=== PATIENT | female | born 1960 | race Caucasian/White ===

== ENCOUNTER 2016-05-08 12:50 | Emergency (ER) | payer OTHER ==
--- NOTE | 2016-05-08 13:46 | EDM.PDOC ---
ED HPI GI/ABDOMINAL - General Chief Complaint: Abdominal Pain Stated Complaint: ABDOMINAL PAIN Time Seen by Provider: 05/08/16 13:45 - History of Present Illness INITIAL COMMENTS - FREE TEXT/NARRATIVE: 55-year-old female presents emergency room with abdominal pain. She's been having some constipation over the last week or so. This is progressively getting worse. The last couple of days and then much worse she has a BM every day. It consists of small hard pellets. Gen. one episode of loose stools a couple days ago. Her appetite is decreased. She has discomfort over the lower abdomen that is fairly generalized. - Related Data Allergies/ADRs: Allergies Allergy/AdvReac Type Severity Reaction Status Date / Time No Known Allergies Allergy Verified 05/08/16 12:58 Home Meds: Home Meds Aspirin 325 mg PO ASDIRECTED PRN 05/08/16 [History] Eletriptan HBr [Relpax] 20 mg PO ASDIRECTED PRN 05/08/16 [History] atorvaSTATin [Lipitor] 10 mg PO DAILY 05/08/16 [History] Past Medical History HEENT History: Reports: Hard of hearing, Impaired vision Cardiovascular History: Reports: High cholesterol Gastrointestinal History: Reports: Hemorrhoids Neurological History: Reports: Headaches, chronic, Migraines - Past Surgical History Other HEENT Surgeries/Procedures: loss of hearing left ear for years Social & Family History - Family History Cardiac: Reports: High cholesterol, Hypertension Oncologic: Reports: Cervix, Prostate - Tobacco Use Smoking Status *Q: Never Smoker Second Hand Smoke Exposure: No - Caffeine Use Caffeine Use: Reports: Coffee - Recreational Drug Use Recreational Drug Use: No ED ROS GENERAL - Review of Systems Review Of Systems: See Below Constitutional: Reports: weight gain. Denies: fever, chills Respiratory: Reports: No Symptoms Cardiovascular: Reports: No symptoms GI/Abdominal: Reports: Abdominal pain, Constipation, Nausea, Vomiting : Reports: no symptoms Neurological: Reports: No Symptoms ED EXAM, GI/ABD - Physical Exam Exam: See Below Exam Limited By: No limitations General Appearance: alert, no apparent distress Head: atraumatic, normocephalic Neck: normal inspection, supple, non-tender, full range of motion. No: lymphadenopathy (L), lymphadenopathy (R) Respiratory/Chest: no respiratory distress, lungs clear, normal breath sounds Cardiovascular: regular rate, rhythm, no edema, no murmur GI/Abdominal: normal bowel sounds, soft, tenderness (She has vague discomfort in the lower abdomen to palpation this is not suprapubic). No: non tender, distention, guarding, rebound, rigidity Rectal (Female) Exam: Hemorrhoids (She has some hemorrhoids noted these do not appear to be a involved at this point rectal exam shows some small fissures that are very tender no stool obtained from digital rectal exam however the stool sample that she would did give us was checked and is Hemoccult positive) Course - Vital Signs Last Recorded V/S: Last Vital Signs Temp 36.2 C 05/08/16 13:02 Pulse 95 05/08/16 13:02 Resp 20 05/08/16 13:02 BP 187/118 H 05/08/16 13:02 Pulse Ox 100 05/08/16 13:02 - Orders/Labs/Meds Orders: Active Orders 24 hr Category Date Time Status Abdomen 2V AP Flat Upright [CR] Stat Exams 05/08/16 13:55 Taken Lactated Ringers [Ringers, Lactated] 1,000 ml Med 05/08/16 14:00 Active IV ASDIRECTED Medication Orders Lactated Ringer's (Ringers, Lactated) 1,000 mls @ 150 mls/hr IV ASDIRECTED LALO Last Admin: 05/08/16 14:06 Dose: 150 mls/hr Labs: Laboratory Tests 05/08/16 05/08/16 05/08/16 Range/Units 13:05 13:05 13:35 WBC 20.21 H (3.98-10.04) K/mm3 RBC 5.15 (3.98-5.22) M/mm3 Hgb 15.5 (11.2-15.7) gm/L Hct 44.9 (34.1-44.9) % MCV 87.2 (79.4-94.8) fl MCH 30.1 (25.6-32.2) pg MCHC 34.5 (32.2-35.5) g/dl RDW Std Deviation 40.9 (36.4-46.3) fL Plt Count 423 H (182-369) K/mm3 MPV 8.8 L (9.4-12.3) fl Neutrophils % (Manual) 57 (40-60) % Band Neutrophils % 0 (0-10) % Lymphocytes % (Manual) 39 (20-40) % Atypical Lymphs % 0 % Monocytes % (Manual) 2 (2-10) % Eosinophils % (Manual) 1 (0.7-5.8) % Basophils % (Manual) 1 (0.1-1.2) Platelet Estimate Adequate RBC Morph Comment Normal Sodium 137 (136-145) mEq/L Potassium 3.7 (3.5-5.1) mEq/L Chloride 99 (98-107) mEq/L Carbon Dioxide 24 (21-32) mEq/L Anion Gap 17.7 H (5-15) BUN 10 (7-18) mg/dL Creatinine 0.9 (0.55-1.02) mg/dL Est Cr Clr Drug Dosing 52.04 mL/min Estimated GFR (MDRD) > 60 (>60) mL/min BUN/Creatinine Ratio 11.1 L (14-18) Glucose 127 H (74-106) mg/dL Calcium 9.8 (8.5-10.1) mg/dL Total Bilirubin 0.9 (0.2-1.0) mg/dL AST 16 (15-37) U/L ALT 36 (14-59) U/L Alkaline Phosphatase 109 (46-116) U/L Total Protein 8.3 H (6.4-8.2) g/dl Albumin 4.4 (3.4-5.0) g/dl Globulin 3.9 gm/dL Albumin/Globulin Ratio 1.1 (1-2) Urine Color Yellow (Yellow) Urine Appearance Clear (Clear) Urine pH 7.0 (5.0-8.0) Ur Specific [place] 1.015 (1.005-1.030) Urine Protein Negative (Negative) Urine Glucose (UA) Negative (Negative) Urine Ketones Trace H (Negative) Urine Occult Blood Negative (Negative) Urine Nitrite Negative (Negative) Urine Bilirubin Negative (Negative) Urine Urobilinogen 0.2 (0.2-1.0) Ur Leukocyte Esterase 1+ H (Negative) Urine RBC 0-5 (0-5) /hpf Urine WBC 10-20 H (0-5) /hpf Ur Squamous Epith Cells 5-10 H (0-5) /hpf Urine Bacteria Few (FEW) /hpf Urine Mucus Few (FEW) /hpf Meds: Medications Generic Name Dose Route Start Last Admin Trade Name Freq PRN Reason Stop Dose Admin Lactated Ringer's 1,000 mls @ 150 mls/hr 05/08/16 14:00 05/08/16 14:06 Ringers, Lactated IV 150 mls/hr ASDIRECTED LALO Administration Discontinued Medications Generic Name Dose Route Start Last Admin Trade Name Clau PRN Reason Stop Dose Admin Ondansetron HCl 4 mg 05/08/16 13:55 05/08/16 14:06 Zofran IVPUSH 05/08/16 13:56 4 mg ONETIME ONE Administration - Re-Assessments/Exams Free Text/Narrative Re-Assessment/Exam: 05/08/16 16:07 For evaluation concerning for a white count is 20,000 however no bandemia, no left shift urinalysis is probably contaminated specimen given she's a heavy symptoms urine culture pending we'll not treat at this point KUB and upright did not show any evidence of obstruction she has a fairly full stool pattern. Patient has long history of constipation we will treat this as though it is constipation. Discussed CAT scan evaluation and the patient agrees to hold off on this she agrees to return in 12 hours if not better sooner if getting worse they will try mag citrate as an outpatient. She was observed in the emergency room she did not have any rectal bleeding here other than very small sample a couple milliliters that was stool with blood mixed in it. Departure - Departure Time of Disposition: 16:11 Disposition: Home, Self-Care 01 Clinical Impression: Abdominal pain of unknown cause, Constipation, Hemorrhoids, external without complications, Rectal fissure Forms: ED Department Discharge Additional Instructions: Return to emergency room with any questions or problems. Return in 12 hours if not better sooner if getting worse. Return sooner if getting worse. Try a bottle of mag citrate. repeat a second bottle in 2-3 hours if needed to get the desired result. Clear liquid diet for the next 12 hours and slowly advance as tolerated. Followup in the clinic on Sunday or . Push lots of fluids fruits and vegetables in your diet when you resume a regular diet. - My Orders Last 24 Hours: My Active Orders 05/08/16 13:55 Abdomen 2V AP Flat Upright [CR] Stat 05/08/16 14:00 Lactated Ringers [Ringers, Lactated] 1,000 ml IV ASDIRECTED - Assessment/Plan Last 24 Hours: My Active Orders 05/08/16 13:55 Abdomen 2V AP Flat Upright [CR] Stat 05/08/16 14:00 Lactated Ringers [Ringers, Lactated] 1,000 ml IV ASDIRECTED
[2016-05-08] MEDS ORDERED: Ondansetron 4 MG/2 ML SDV IVPUSH ONE (13:55)
[2016-05-08] MEDS ORDERED: Lactated Ringers 1,000 ML IV SCH (14:00)
[2016-05-08 16:38] VITALS: BP 150/88
--- NOTE | 2016-05-08 18:04 | CR ---
Abdomen: Supine and upright views of the abdomen were obtained. Comparison: No previous study. No free air is seen. Bowel gas pattern is felt to be within normal limits. Calcifications are identified within the pelvis most likely representing phleboliths. Bony structures are unremarkable. Impression: 1. Incidental findings. Diagnostic code #2
== END 2016-05-08 16:41 | disposition home or self-care (01) ==
LOC: JD.ED 12:50
DX: R10.9 Unspecified abdominal pain (principal); K59.00 Constipation, unspecified; K64.4 Residual hemorrhoidal skin tags; K60.2 Anal fissure, unspecified; E78.00 Pure hypercholesterolemia, unspecified
CPT/HCPCS: 36415; 74020; 80053; 81001; 85025; 87086; 96361; 96374; 99284; J2405; J7120

== ENCOUNTER 2017-01-08 06:05 | Emergency (ER) | payer OTHER ==
--- NOTE | 2017-01-08 06:37 | EDM.PDOC ---
ED HPI GENERAL MEDICAL PROBLEM - General Chief Complaint: Cardiovascular Problem Stated Complaint: HIGH BLOOD PRESSURE Time Seen by Provider: 01/08/17 06:21 Source of Information: Reports: Patient History Limitations: Reports: No Limitations - History of Present Illness INITIAL COMMENTS - FREE TEXT/NARRATIVE: 56-year-old female arrives in the ED with noted elevated blood pressure when she was seen at the clinic yesterday for dental pain as well as noted elevated blood pressure on checking at home this morning. She was also told that her blood pressure was elevated when she went [facility] a month or so ago and they would not accept her as a phlebotomy patient due to elevated BP. Patient is followed by aJlyn Le. She has been told on a few occasions her blood pressure is borderline but she has never required medication. Patient takes medication for migraine headache occasionally. Last use was approximately 8 days ago. She reports the pain in her tooth is minor at this time. She did take a hydrocodone pill prescribed yesterday about 2200 hrs. last night and some Excedrin Migraine 2 tablets at 3:00 this morning. Blood pressure at her home this morning was 155/105. Initial blood pressure in the ED was 173/109 . She drove her car this morning without any problems with balance or feeling off kilter. She has no chest pain although she does report intermittent heaviness which she equates to being anxious. Onset: Sudden (See history of present illness) Onset Date: 01/07/17 (She was told her blood pressure was elevated at the clinic yesterday but she was in dental pain at that time. She was advised follow -up was required.) Duration: Other (Unknown. 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: Home Treatments (Excedrin Migraine 2 tablets at 3:00 this morning.) - Related Data Allergies Allergy/AdvReac Type Severity Reaction Status Date / Time No Known Allergies Allergy Verified 05/08/16 12:58 Home Meds: Home Meds Aspirin 325 mg PO ASDIRECTED PRN 05/08/16 [History] Eletriptan HBr [Relpax] 20 mg PO ASDIRECTED PRN 05/08/16 [History] atorvaSTATin [Lipitor] 10 mg PO DAILY 05/08/16 [History] Amoxicillin 500 mg PO TID 01/08/17 [History] Cholecalciferol (Vitamin D3) [Vitamin D] 1 cap PO DAILY 01/08/17 [History] Multivitamin [Multi-Vitamin Daily] 1 cap PO DAILY 01/08/17 [History] amLODIPine [Norvasc] 5 mg PO DAILY #30 tablet 01/08/17 [Rx] Past Medical History HEENT History: Reports: Hard of Hearing, Impaired Vision Cardiovascular History: Reports: High Cholesterol Gastrointestinal History: Reports: Hemorrhoids Neurological History: Reports: Headaches, Chronic, Migraines - Past Surgical History Other HEENT Surgeries/Procedures: loss of hearing left ear for years Social & Family History - Family History Cardiac: Reports: High Cholesterol, Hypertension Oncologic: Reports: Cervix, Prostate - Tobacco Use Smoking Status *Q: Never Smoker Second Hand Smoke Exposure: No - Caffeine Use Caffeine Use: Reports: Coffee - Recreational Drug Use Recreational Drug Use: No - Living Situation & Occupation Living situation: Reports: Occupation: Employed ED ROS GENERAL - Review of Systems Review Of Systems: See Below Constitutional: Reports: Fatigue (Has been ill with a flu 3 days ago and then give subsequent he developed dental pain right lower first molar tooth night before last. This is kept her from getting adequate rest and sleep.). Denies: Fever, Chills, Malaise, Weakness HEENT: Reports: Dental Pain (Right lower first molar tooth.), Other (Patient is pretty will definitely her left ear due to chronic infection and previous tympanoplasty performed. Patient was age 28.). Denies: Ear Pain Respiratory: Reports: No Symptoms. Denies: Shortness of Breath, Wheezing, Pleuritic Chest Pain Cardiovascular: Reports: Blood Pressure Problem (See history of present illness) Endocrine: Reports: Fatigue GI/Abdominal: Reports: Constipation (Occasional problems) : Reports: No Symptoms Musculoskeletal: Reports: No Symptoms Skin: Reports: No Symptoms Neurological: Reports: No Symptoms, Headache. Denies: Confusion, Dizziness, Numbness (Gets a lot of headaches. Suffers from migraines intermittently.), Paresthesia, Pre-Existing Deficit, Seizure, Syncope, Tingling, Tremors, Trouble Speaking, Difficulty Walking, Weakness, Change in Speech, Gait Disturbance Psychiatric: Reports: Anxiety (Mildly anxious at this time) Hematologic/Lymphatic: Reports: No Symptoms Immunologic: Reports: No Symptoms ED EXAM, GENERAL - Physical Exam Exam: See Below Exam Limited By: No Limitations General Appearance: Alert, WD/WN, Anxious Eye Exam: Bilateral Eye: Normal Inspection Ears: Other (Patient has an abnormal appearing left eardrum from previous tympanoplasty. She reports she's. We'll definitely see her. Lt tympanic membrane is abnormal and suggests fluid in the middle ear space.) Neck: Normal Inspection, Supple, Non-Tender, Full Range of Motion, Limited Range of Motion, Lymphadenopathy (R) (Right submandibular gland adenopathy). No : Lymphadenopathy (L) Respiratory/Chest: No Respiratory Distress ( with mild tenderness to palpation. Appears to be secondary to dental infection.), Lungs Clear, Normal Breath Sounds , No Accessory Muscle Use, Chest Non-Tender Cardiovascular: Normal Peripheral Pulses, Regular Rate, Rhythm, No Edema, No Murmur, Tachycardia (100/m on initial assessment. Current heart rate is now 78.) Peripheral Pulses: 2+: Radial (L), Radial (R), Posterior Tibial (L), Posterior Tibial (R), Dorsalis Pedis (L), Dorsalis Pedis (R), 3+: Carotid (L), Carotid (R) Extremities: Normal Inspection, Normal Range of Motion, Non-Tender, No Pedal Edema Neurological: Alert, Oriented, CN II-XII Intact, Normal Cognition, Normal Gait, Other (Normal finger to nose and no pronator drift. Normal rapid alternating movements.). No: Abnormal Gait Psychiatric: Normal Affect, Normal Mood Skin Exam: Warm, Dry, Intact, Normal Color, No Rash Course - Vital Signs Last Recorded V/S: Last Vital Signs Temp 36.4 C 01/08/17 06:10 Pulse 100 01/08/17 06:10 Resp 18 01/08/17 06:10 BP 173/109 H 01/08/17 06:10 Pulse Ox 96 01/08/17 06:10 - Orders/Labs/Meds Meds: Medications Discontinued Medications Generic Name Dose Route Start Last Admin Trade Name Freq PRN Reason Stop Dose Admin Amlodipine Besylate 10 mg 01/08/17 07:02 Norvasc PO 11/27/17 07:03 ONETIME ONE Ondansetron HCl 4 mg 01/08/17 06:59 Zofran Odt PO 01/08/17 07:00 ONETIME ONE - Radiology Interpretation Free Text/Narrative:: 56-year-old female presents to the ED for evaluation of elevated blood pressure. BP on arrival was 170 3. She appreciates that she is anxious. At home she had 157/106. Examination at this time is otherwise normal. But pressure was 157 105 on my assessment. Heart rate is 80/m. Patient is quite anxious and I think is contributing somewhat to an elevated blood pressure. However subsequent readings over the next half hour reveal blood pressure to be elevated at around 160 systolic and around 104-108 diastolic. - Re-Assessments/Exams Free Text/Narrative Re-Assessment/Exam: 01/08/17 07:09 blood pressures remained elevated at around 160 systolic and 100 diastolic. Highest blood pressure recorded was 173/110. Therefore decision made to treat with amlodipine 10 mg per ora now and then 5 mg daily until she follows up with her primary care provider. From her history where she got turned out at the blood donor clinic 6 weeks ago because of elevated blood pressure .She most likely has essential hypertension that is developed over the last year. I did review notes from all scripts and blood pressure recorded in the clinic was 128/88. Usually her blood pressures in the 120s over 80. She is she has been ill with the flow would last 2 days and then developed dental pain yesterday which is contributing to her anxiety. Last labs reviewed in clinic revealed a normal renal function and she has no contraindications to medication. Amlodipine can exacerbate migraine headaches in headache patients occasionally. Advise follow-up with primary care provider in 10 days' time. She will check her blood pressure daily at home intermittently and write down time and date. Departure - Departure Time of Disposition: 07:18 Disposition: Home, Self-Care 01 Condition: Fair Clinical Impression: Essential hypertension Prescriptions: amLODIPine [Norvasc] 5 mg PO DAILY #30 tablet Referrals: Jalyn Le GUNNER MATE [Primary Care Provider] - Forms: ED Department Discharge, ED Return to Work/School Form Additional Instructions: Evaluation in the emergency room this morning due to elevated blood pressure appreciated at the clinic yesterday and again this morning when you checked her blood pressure. He will monitor to the ED over the last hour and blood pressure has remained elevated on average about 160 on the top and 100 on the bottom number. Therefore I am going to suggest starting high blood pressure medication amlodipine. 5 mg hours to be taken daily starting tomorrow morning. You're given initial dose of amlodipine in the ED today. Education is taken daily and should reduce her blood pressure starting even today. Suggest follow-up with Jalyn Le in about 10 days time for blood pressure review. You can continue to check her blood pressure at home as well and document the numbers you get and time of day. This helps us decide if further medication or different medication is required. Suggest off work today and note given in this regard.
[2017-01-08] MEDS ORDERED: Ondansetron 4 MG Tab.DIS PO ONE (06:59)
[2017-01-08] MEDS ORDERED: amLODIPine 10 MG Tab PO ONE (07:02)
[2017-01-08 07:38] VITALS: BP 154/98
== END 2017-01-08 07:32 | disposition home or self-care (01) ==
LOC: JD.ED 06:05
DX: I10 Essential (primary) hypertension (principal); Z79.82 Long term (current) use of aspirin; Z79.899 Other long term (current) drug therapy
CPT/HCPCS: 99283; A9270

== ENCOUNTER 2022-09-12 04:25 | Emergency (ER) | payer OTHER ==
[2022-09-12 04:35] VITALS: BP 107/92; PULSE 95
[2022-09-12] MEDS ORDERED: Ondansetron 4 MG/2 ML SDV IVPUSH ONE (05:14)
[2022-09-12] MEDS ORDERED: Sodium Chloride 0.9% 1,000 ML IV SCH (05:15)
[2022-09-12] MEDS ORDERED: LORazepam 2 MG/ML SDV IVPUSH STA (05:16)
[2022-09-12 05:28] LABS: HEMATOCRIT 46.9 % (34.1-44.9); HEMOGLOBIN 15.8 gm/dl (11.2-15.7); MEAN CORPUSCULAR HEMOGLOBIN 30.4 pg (25.6-32.2); MEAN CORPUSCULAR HGB CONC 33.7 g/dl (32.2-35.5); MEAN CORPUSCULAR VOLUME 90.2 fl (79.4-94.8); MEAN PLATELET VOLUME 8.8 fl (9.4-12.3); PLATELET COUNT,PLT 463 K/mm3 (182-369); WHITE BLOOD CELL COUNT,WBC 8.43 K/mm3 (3.98-10.04)
[2022-09-12 06:02] LABS: APPEARANCE,URINE CLEAR (Clear); BILIRUBIN,URINE NEGATIVE (Negative); COLOR,URINE YELLOW (Yellow); GLUCOSE,URINE NEGATIVE (Negative); KETONES,URINE TRACE (Negative); LEUKOCYTE ESTERASE,URINE TRACE (Negative); NITRITE,URINE NEGATIVE (Negative); OCCULT BLOOD,URINE NEGATIVE (Negative); PROTEIN,URINE NEGATIVE (Negative); UROBILINOGEN,URINE 0.2 (0.2-1.0)
[2022-09-12 06:06] LABS: A/G RATIO 1.1 (1-2); ALBUMIN 4.1 g/dl (3.4-5.0); ANION GAP 14.7 (5-15); BILIRUBIN TOTAL 1.2 mg/dL (0.2-1.0); CALCIUM 9.7 mg/dL (8.5-10.1); EST CRCL DRUG DOSING (CG) 40.82 mL/min; POTASSIUM,K 3.7 mEq/L (3.5-5.1)
[2022-09-12 06:10] LABS: BAND PERCENT MAN 0 % (0-10); BASOPHILS PERCENT MAN 1 (0.1-1.2); EOSINOPHILS PERCENT MAN 1 % (0.7-5.8); LYMPHOCYTES % ATYPICAL MANUAL 3 %; LYMPHOCYTES PERCENT MAN 31 % (20-40); MONOCYTES PERCENT MAN 10 % (2-10); PLATELET COUNT ESTIMATE INCREASED
[2022-09-12] MEDS ORDERED: Iopamidol 612 MG/ML 100 ML Bottle IVPUSH ONE (06:11)
[2022-09-12 06:30] LABS: RBC,URINE 0-5 /hpf (0-5); SQUAMOUS EPITHELIAL CELLS,UR NOT SEEN /hpf (0-5); WBC,URINE 0-5 /hpf (0-5)
[2022-09-12 06:31] LABS: BACTERIA,URINE RARE /hpf (FEW); MUCUS,URINE NOT SEEN /hpf (FEW)
== END 2022-09-12 07:04 | disposition home or self-care (01) ==
LOC: JD.ED 04:25
DX: A08.4 Viral intestinal infection, unspecified (principal); I10 Essential (primary) hypertension; E78.00 Pure hypercholesterolemia, unspecified; Z79.899 Other long term (current) drug therapy
CPT/HCPCS: 36415; 74177; 80053; 81001; 83690; 85007; 85027; 96361; 96374; 96375; 99284; J2060; J2405; J7030; Q9967